=== PATIENT | male | born 1990 | race Two or more races ===

== ENCOUNTER 2018-05-18 19:28 | Emergency (ER) | payer SELFPAY ==
[~2018-05-18] VITALS: Ht 177.8 cm; Wt 78.9 kg
[2018-05-18 19:32] VITALS: BP 121/97
[2018-05-19] MEDS ORDERED: KETOROLAC TROMETH 60MG/2ML VIAL IM ONE
== END 2018-05-19 00:40 | disposition home or self-care (01) ==
LOC: ER 19:28
DX: B08.4 Enteroviral vesicular stomatitis with exanthem (principal); F12.10 Cannabis abuse, uncomplicated; F17.210 Nicotine dependence, cigarettes, uncomplicated
CPT/HCPCS: 96372; 99283; J1885

== ENCOUNTER 2021-05-14 20:57 | Emergency (ER) | payer MEDICAID ==
[~2021-05-14] VITALS: Ht 180.3 cm; Wt 86.2 kg
[2021-05-15] MEDS ORDERED: KETOROLAC TROMETH 60MG/2ML VIAL IM ONE (00:15)
[2021-05-15] MEDS ORDERED: methylPREDNISolone SOD SUCC 125 MG/2 ML VL IM ONE (00:15)
[2021-05-15 01:06] VITALS: BP 115/68
== END 2021-05-15 01:15 | disposition home or self-care (01) ==
LOC: ER 20:58
DX: S33.5XXA Sprain of ligaments of lumbar spine, initial encounter (principal); M54.16 Radiculopathy, lumbar region; M54.41 Lumbago with sciatica, right side; F17.210 Nicotine dependence, cigarettes, uncomplicated; X50.1XXA Overexertion from prolonged static or awkward postures, initial encounter; Y93.89 Activity, other specified; Y92.89 Other specified places as the place of occurrence of the external cause; Y99.8 Other external cause status
CPT/HCPCS: 71045; 72131; 96372; 99284; J1885; J2930

== ENCOUNTER 2022-09-26 09:55 | Emergency (ER) | payer MEDICAID ==
[~2022-09-26] VITALS: Ht 180.3 cm; Wt 98.8 kg
[2022-09-26 10:40] VITALS: BP 109/68
[2022-09-26 10:58] LABS: Urine Bacteria NONE SEEN /hpf (None Seen); Urine Blood Negative /uL (Negative); Urine Specific Gravity 1.023 (1.001-1.035); Urine WBC <1 /hpf (0 - 3)
[2022-09-26 12:11] LABS: Basophils # (auto) 0.1 10 ^3/uL (0-0.2); Basophils % (auto) 1.3 % (0.0-2.0); Eosinophils # (auto) 0.3 10 ^3/uL (0-0.8); Eosinophils % (auto) 4.1 % (0.0-7.0); Hematocrit 44.7 % (41.0-53.0); Hemoglobin 15.7 g/dL (13.5-17.5); Lymphocytes # (auto) 2.2 10 ^3/uL (0.4-5.4); Lymphocytes % (auto) 34.8 % (10.0-50.0); Mean Corpuscular Hemoglobin 30.9 pg (28.0-32.0); Mean Corpuscular Hgb Conc. 35.1 g/dL (32.0-36.0); Mean Corpuscular Volume 88.1 fL (80.0-100.0); Monocytes # (auto) 0.6 10 ^3/uL (0-1.3); Monocytes % (auto) 9.9 % (0.0-12.0); Neutrophils # (auto) 3.1 10 ^3/uL (1.6-8.6); Neutrophils % (auto) 49.9 % (37.0-80.0); Nucleated Red Blood Cells % 0.9 %; Red Blood Cells 5.08 10^6/uL (4.5-5.90); Red Cell Distribution Width 12.2 % (11.8-14.3); White Blood Cell 6.2 10^3/uL (4.4-10.8)
[2022-09-26 12:16] LABS: BUN/Creatinine Ratio 10.7; Calcium 9.5 mg/dL (8.5-10.1); Potassium 4.6 mmol/L (3.5-5.1)
[2022-09-26] MEDS: KETOROLAC TROMETH 60MG/2ML VIAL IM ONE (12:39)
[2022-09-26] MEDS ORDERED: IBUP800T27 PO (12:51)
[2022-09-26] MEDS ORDERED: METH750T22 PO (12:51)
== END 2022-09-26 12:56 | disposition home or self-care (01) ==
LOC: ER 09:55
DX: M47.26 Other spondylosis with radiculopathy, lumbar region (principal); N43.3 Hydrocele, unspecified; F17.210 Nicotine dependence, cigarettes, uncomplicated; F12.10 Cannabis abuse, uncomplicated
CPT/HCPCS: 36415; 74176; 76870; 80048; 81001; 85025; 96372; 99285; J1885

== ENCOUNTER 2024-10-02 20:49 | Emergency (ER) | payer MEDICAID ==
[~2024-10-02] VITALS: Ht 177.8 cm; Wt 99.9 kg
[~2024-10-02 20:49] MED LIST: IBUP-1455 PO; IBUP-1456 PO; METH-1182 PO
--- NOTE | 2024-10-02 21:48 | DVH ---
XY L ELBOW 3 VIEW XRAY, INDICATION: fall TECHNICAL DATA: Frontal, oblique and lateral views were obtained of the left elbow. COMPARISON: None Findings/ IMPRESSION: Minimally displaced fracture through the radial head with extension into the elbow joint. No radiopaq ue foreign objects. Small anterior and posterior elbow joint effusions.
[2024-10-02] MEDS ORDERED: IBUP-1455 PO (22:02)
--- NOTE | 2024-10-02 22:03 | ED.PDOC ---
Musculoskeletal HPI Comments 33-year-old male complaining of left elbow pain. Patient states he was up on a ladder when he fell off landing on his left elbow. Patient states no loss of consciousness. Could not straighten out his elbow. Chief Complaint: Upper Extremity Time Seen by MD: 21:09 Primary Care Provider: DENIED Reviewed Notes: Nurses Notes Allergies: Coded Allergies: NO KNOWN ALLERGIES (Unverified , 08/31/15) Home Meds Active Scripts Ibuprofen Micronized (Ibuprofen) 800 Mg Tab, 800 MG PO Q8HP PRN, #30 TAB Prov:GARCIA LAM PAC 08/07/23 Methocarbamol (Methocarbamol) 750 Mg Tab, 750 MG PO BID, #20 TAB Prov:LINDA GUARDADO 09/26/22 Ibuprofen (Ibuprofen) 800 Mg Tab, 1 TAB PO TID, #30 TAB Prov:LINDA GUARDADO 09/26/22 Information Source: Patient Mode of Arrival: Ambulatory Location: Left Extremity Location: Elbow Past Medical History PAST MEDICAL HISTORY: Denies Surgical History: Denies all surgeries Family History Family History: Reviewed,noncontributory to illness, No family hx of Cancer, No family hx of DM, No family hx of Heart terry, No family hx of HTN, No family hx ofKidney terry, No family hx of Liver terry, No family hx of Lung terry, No family hx of Stroke Social History Smoker: Cigarettes Alcohol: Occasionally Drugs: Marijuana Lives In: Home Constitutional: denies: chills, diaphoresis, fatigue, fever, malaise, sweats, weakness, others EENTM: denies: blurred vision, double vision, ear bleeding, ear discharge, ear drainage, ear pain, ear ringing, eye pain, eye redness, hearing loss, mouth pain, mouth swelling, nasal discharge, nose bleeding, nose congestion, nose pain, photophobia, tearing, throat pain, throat swelling, voice changes, others Respiratory: denies: cough, hemoptysis, orthopnea, SOB at rest, shortness of breath, SOB with excertion, stridor, wheezing, others Cardiovascular: denies: chest pain, dizzy spells, diaphoresis, Dyspnea on exertion, edema, irregular heart beat, left arm pain, lightheadedness, palpitations, PND, syncope, others Gastrointestinal: denies: abdomen distended, abdominal pain, blood streaked bowels, constipated, diarrhea, dysphagia, difficulty swallowing, hematemesis, melena, nausea, poor appetite, poor fluid intake, rectal bleeding, rectal pain, vomiting, others Genitourinary: denies: burning, dysuria, flank pain, frequency, hematuria, incontinence, penile discharge, penile sore, pain, testicle pain, testicle swelling, urgency, others Neurological: denies: dizziness, fainting, headache, left sided numbness, left sided weakness, numbness, paresthesia, pre-existing deficit, right sided numbness, right sided weakness, seizure, speech problems, tingling, tremors, weakness, others Musculoskeletal: reports: joint pain; denies: back pain, gout, joint swelling, muscle pain, muscle stiffness, neck pain, others Integumetry: denies: bruises, change in color, change in hair/nails, dryness, laceration, lesions, lumps, rash, wounds, others Allergic/Immunocompromised: denies: Difficulty Healing, Frequent Infections, Hives, Itching, others Physical Exam General Appearance: No Apparent Distress, Normal HEENT: Normal ENT Inspection, Pharynx Normal, TMs Normal Neck: Full Range of Motion, Non-Tender, Normal, Normal Inspection Respiratory: Chest Non-Tender, Lungs Clear, No Accessory Muscle Use, No Respiratory Distress, Normal Breath Sounds Cardiovascular: No Edema, No JVD, No Murmur, No Gallop, Normal Peripheral Pulses, Regular Rate/Rhythm Breast Exam: Deferred Gastrointestinal: No Organomegaly, Non Tender, No Pulsatile Mass, Normal Bowel Sounds, Soft Genitalia: Deferred Pelvic: Deferred Rectal: Deferred Extremities: No calf tenderness, Normal capillary refill, Normal inspection, Tender (Left elbow tender to palpation, positive swelling, limited range of mo tion due to pain.) Musculoskeletal : Apperance: Normal Neurologic: Alert, hand edger II-XII nml as Tested, No Motor Deficits, Normal Affect, Normal Mood, No Sensory Deficits Cerebellar Function: Normal Reflexes: Normal Skin: Dry, Normal Color, Warm Lymphatic: No Adenopathy Was a procedure done? Was a procedure done?: No Differential Diagnosis EXT Differential Diagnosis: Compartment Syndrome, Fracture, Sprain, Dislocation X-Ray, Labs, Meds, VS Vital Signs Date Time Temp Pulse Resp B/P (MAP) Pulse Ox O2 Delivery O2 Flow Rate FiO2 10/02/24 21:12 99.0 70 18 111/68 (82) 96 X-Ray, Labs, Meds, VS Comment Imaging: X-rays and CT scans were reviewed and interpreted by this provider, minimally displaced fracture of the radial head Laboratory: Labs reviewed and interpreted by this provider. No significant abnormalities noted. Patient has prior medical visits reviewed. Med reconciliation performed Vital signs reviewed Patient placed in a posterior long-arm splint. Positive CMS pre and post splint application. Advised he will need to follow up with the auto wheel alignment specialist for further evaluation and cast placement. Time of 1ST Reevaluation: 22:03 Reevaluation 1ST: Improved Patient Education/Counseling: Diagnosis, Treatment, Need For Follow Up (Follow up with auto wheel alignment specialist in next 3-5 days.) Family Education/Counseling: Diagnosis, Treatment Departure 1 Departure Time of Disposition: 22:01 Impression: Primary Impression: Radial head fracture Qualified Codes: S52.125A - Nondisplaced fracture of head of left radius, initial encounter for closed fracture Disposition: 01 HOME / SELF CARE / HOMELESS Condition: Fair e-Prescriptions Ibuprofen Micronized (Ibuprofen) 800 Mg Tab 800 MG PO TID PRN, #30 TAB Prov: PANFILO VENTURA 10/02/24 Discharged With: Self Critical Care Note Critical Care Time?: No Stability Stability form required: No Heart Score Heart Score: Heart Score Response (Comments) Value History N/A 0 EKG N/A 0 Age N/A 0 Risk Factors N/A 0 Troponin N/A 0 Total 0 PANFILO VENTURA Oct 02, 2024 22:03
[2024-10-02] MEDS: KETOROLAC TROMETH 30 MG/ML 1ML VIAL IM ONE (22:12)
[2024-10-02 22:16] VITALS: BP 122/66; PULSE 61; RESP 20; TEMP 98.3; O2SAT 100
== END 2024-10-02 22:38 | disposition home or self-care (01) ==
LOC: ER 20:49
DX: S52.122A Displaced fracture of head of left radius, initial encounter for closed fracture (principal); F17.210 Nicotine dependence, cigarettes, uncomplicated; W11.XXXA Fall on and from ladder, initial encounter; Y93.89 Activity, other specified; Y92.89 Other specified places as the place of occurrence of the external cause; Y99.8 Other external cause status
CPT/HCPCS: 29105; 73080; 96372; 99283; J1885